=== PATIENT | male | born 1980 | race Caucasian/White ===

== ENCOUNTER 2017-05-08 18:57 | Observation (INO) | payer MEDICAID ==
--- NOTE | 2017-05-08 20:10 | HP ---
Chief Complaint - Chief Complaint Date of Service: 05/08/17 Time of Service: 19:58 Chief Complaint: Right flank pain History of Present Illness: Pt presented to the ER in [place] yesterday with complaints of right flank pain and was treated for a presumed UTI with PO Amoxicillin and Pyridium. He returned to the emergency room this afternoon in [place] with complaints of ongoing and intensifying pain. Further workup has shown a WBC of 17K and a CT scan has shown a retrocecal appendicitis without rupture or abscess. In addition to pain he has some nausea. His last dose of Amoxicillin and Pyridium was 2:30 this afternoon. We were contacted by the ER and I accepted him in transfer. He came her via private vehicle. - Patient's Past Medical History Patient History - Medical: No pertinent hx Patient History - Cardiac/Respiratory: No pertinent hx Patient History - Cancer: No Hx of Cancer Patient History - Surgical Procedures: ENT - Deviated septum repair Patient History - Other: None - Family History Family History:: no untoward family reactions to anesthesia, no familial bleeding tendencies, no family history of clotting disorders, no family history of premature - Social History Living Situations: home Psych History: No pertinent hx Does anyone smoke in the home?: No Smoking Status: Never smoker Have you smoked in the past 12 months: No Do you dip or chew tobacco: No Alcohol Use: occasionally Drug Use: none - Immunizations Immunizations Up to Date: Yes Review Of Systems (GEN) - Review of Systems Abdominal: Present: Nausea, Abdominal Pain, Constipation - twice this last year Misc: All systems neg except as marked Allergies/Adverse Reactions: Allergies Allergy/AdvReac Type Severity Reaction Status Date / Time No Known Allergies Allergy Unverified 05/08/17 19:00 Home Medications: HOME MEDICATIONS Amoxicillin 05/08/17 [Last Taken Unknown] Pyridium 05/08/17 [Last Taken Unknown] Exam - Exam Vital Signs: Vital Signs - Last Taken Temp 36.6 C 05/08/17 18:57 Pulse 97 05/08/17 18:57 Resp 17 05/08/17 18:57 BP 125/104 05/08/17 18:57 Pulse Ox 99 05/08/17 18:57 Constitutional: Present: Alert, Oriented x3, Cooperative, Well developed, Well nourished, Mild distress ENT Exam: Present: normal ENT inspection Eye Exam: bilateral eye: normal inspection Neck: Present: non-tender, full range of motion, supple, trachea midline. Absent: lymphadenopathy (R), lymphadenopathy (L), thyromegaly Respiratory: Present: lungs clear, normal breath sounds, no respiratory distress , no accessory muscle use Cardiovascular/Chest: Present: regular rate, rhythm, no murmur Abdomen: Present: soft, tender - right flank Neurologic: Present: no motor/sensory deficits Appearance: Present: appropriate appearance, appropriate insight, neat Eye contact: Present: cooperative, good eye contact Thoughts: Present: normal thought pattern Diagnostic Studies: CT from [place]: films reviewed by me. All accompanying documents from [place] reviewed. MCT Assessment/Plan - Assessment/Plan (1) Acute appendicitis with localized peritonitis Assessment: Plan admission, hydration, IV abx, and laparoscopic appendectomy in AM. The options, risks, and benefits of the operation were reviewed fully. He seems to understand, asks appropriate questions, and desires to proceed. Problem: Acute
[2017-05-08] MEDS ORDERED: RINGER'S SOLUTION,LACTATED 1,000 ML IV PRN (20:11)
[2017-05-08] MEDS ORDERED: HYDROcodone/ACETAMINOPHEN 1 EACH TABLET PO PRN (20:15)
[2017-05-08] MEDS ORDERED: ONDANSETRON HCL/PF 2 MG/ML VIAL IV PRN (20:15)
[2017-05-08] MEDS: MORPHINE SULFATE 4 MG/ML SYRG IV PRN ×2 (21:17→22:28)
[2017-05-08] MEDS ORDERED: LEVOFLOXACIN IN DEXTROSE 5 % 750 MG/150 ML BAG IV SCH (22:00)
[2017-05-08] MEDS: metroNIDAZOLE/SODIUM CHLORIDE 500 MG/100 ML BAG IV SCH (22:11)
[2017-05-09] MEDS: MORPHINE SULFATE 4 MG/ML SYRG IV PRN ×5 (00:18→06:02)
[2017-05-09] MEDS: metroNIDAZOLE/SODIUM CHLORIDE 500 MG/100 ML BAG IV SCH ×2 (04:30→12:43)
[2017-05-09] MEDS ORDERED: MORPHINE SULFATE 2 MG/ML DISP.SYRIN IV PRN ×2 (06:20→08:27)
[2017-05-09] MEDS ORDERED: RINGER'S SOLUTION,LACTATED 1,000 ML IV ONE ×2 (07:15→07:25)
[2017-05-09] MEDS ORDERED: BUPIVACAINE HCL/EPINEPHRINE 50 ML VIAL IJ ONE (07:35)
--- NOTE | 2017-05-09 08:23 | OR ---
Operative Report - Dictated Report Narrative: Date: 05/09/2017 Preoperative diagnosis: Acute appendicitis Postoperative diagnosis: Same, retrocecal, nonperforated Procedure: Laparoscopic appendectomy Staff surgeon: Xu Vergara MD Anesthesia: Gen. endotracheal EBL: Minimal Specimen: Appendix Description of procedure: The patient underwent the smooth induction of general endotracheal anesthesia. SCD boots were applied and a Corado catheter was inserted and the abdomen was prepped and draped in a sterile fashion. All port sites were anesthetized with Marcaine prior to incision. A 5 mm infraumbilical incision was carried out and blunt dissection was taken down to the abdominal wall. A perforating towel clip was placed through the umbilical raphae for countertraction. The abdomen was entered under direct vision with the 5 mm blunt port with the scope within the lumen of the trocar. The abdomen was insufflated to a pressure of 15 mmHg with carbon dioxide. The scope was inserted and inspection was carried out. This inspection was unremarkable and no purulence was identified. Under direct vision a 12 mm blunt suprapubic port and left lower quadrant 5 mm blunt port were inserted. The preoperative CT has identified this as a retrocecal appendix. The white line of Toldt was incised in the right paracolic gutter using a standard beat. The mesoappendix was then windowed at the base of the appendix with a right angle clamp. The appendix was then transected at its base with an Endo DALIA stapler. The mesoappendix was then taken down in retrograde from the base towards the tip. Once liberated the appendix was placed in an Endo Catch bag and delivered through the suprapubic port. The stump appeared to be hemostatic and once again no purulence was identified. The retroperitoneum was edematous. There was no gangrene of the appendix and it was not perforated. The port sites appeared to be hemostatic. The pneumoperitoneum was evacuated and the ports were removed. The incisions were closed with subcuticular stitches of 4-0 Vicryl and then sealed with Dermabond. The patient tolerated the procedure well without any apparent complications and was discharged from the operating room in stable condition.
[2017-05-09] MEDS ORDERED: oxyCODONE HCL/ACETAMINOPHEN 1 TAB TABLET PO PRN (08:27)
--- NOTE | 2017-05-09 08:40 | DS ---
(1) Acute appendicitis with localized peritonitis Problem: Resolved Description of Stay: Pt was transferred to our facility from [facility] with dx of acute appendicitis. He was admitted, hydrated overnight, given IV abx and underwent a laparoscopic appendectomy the following morning. No purulence was encountered. The appendix was retrocecal and not perforated and without gangrene. Only edema was seen in the retroperitoneum. He tolerated the procedure well without complications and was discharged later the same day with a script for [place], diet as tolerated, may shower, avoid lifting > 20 lb x 1 wk, short interval follow-up on 05/15. No ongoing antibiotics are indicated. Procedures Performed: see notes below List Procedures: Laparoscopic appendectomy Discharge Location: Home Disposition: Home self-care Condition: Good Discharge Activity: No Lifting - > 20 lb x 1 week Discharge Diet: General/regular food Complete Home Medications List: Complete Home Medication List: Amoxicillin 500 mg PO TID 05/09/17 Phenazopyridine HCl [Pyridium] 200 mg PO TID 05/09/17
[2017-05-09 15:08] VITALS: BP 107/65
== END 2017-05-09 15:45 | disposition home or self-care (01) ==
LOC: ER 18:57 → MS 19:50
PROVIDERS: ADMIT Specialist; ATTEND Specialist
PROC: 0DTJ4ZZ Resection of Appendix, Percutaneous Endoscopic Approach (ICD-10-PCS; principal; 2017-05-09)
DX: K35.3 Acute appendicitis with localized peritonitis (principal); Z68.25 Body mass index [BMI] 25.0-25.9, adult
CPT/HCPCS: 44970; 88304; 96365; 96366; 96367; 96375; G0378; J2405